=== PATIENT | female | born 1950 | race Caucasian/White ===

== ENCOUNTER 2022-04-24 13:37 | Outpatient (CLI) | payer MEDICARE, SELFPAY ==
--- NOTE | 2022-04-24 | CRLHL7_ITS ---
For Patients: As a result of the Century Cures Act, medical imaging exams and procedure reports are released immediately into your electronic medical record. You may view this report before your referring provider. If you have questions, please contact your health care provider. DXA BONE MINERAL DENSITY STUDY Current height (in): 63. Weight (lb): 170. Menopause age: 51. Ethnicity: White. 1. Have you had a previous hip or vertebral fracture? No. 2. Have you had any fractures during your adult life which did not result from significant trauma (e.g., auto accident)? No. 3. Did either of your parents have a hip fracture? No. 4. Do you smoke? No. 5. Have you ever taken Glucocorticoids? No. 6. Do you have rheumatoid arthritis? No. 7. Do you have secondary osteoporosis? No. 8. Do you drink 3 or more alcoholic drinks per day? No. 9. Are you being treated for osteoporosis? No. 10. Have you ever taken any of the following medications: Actonel, Evista, Fosamax, Miacalcin, Reclast, Boniva, Forteo, HRT (i.e. estrogen/hormone therapy), Protelos, Prolia, Vitamin D, Calcium, other ??? please specify. ANSWER: Yes, vitamin D. 11. Do you have any of the following medical conditions: Anorexia or bulimia, asthma or emphysema, end stage renal disease, hyperparathyroidism, any seizure disorders, cancer, inflammatory bowel diseases, hysterectomy, other ??? please specify. ANSWER: Yes, cancer. 12. What was your maximum height (inches)? 64. 13. Do you perform weight bearing exercise regularly? No. 14. Do you regularly consume dairy products? No. 15. Do you drink caffeinated beverages? Yes. 16. At what age did your period start? 13. 17. Are you premenopausal? No. 18. How many full term pregnancies have you had? 3. 19. Have you ever missed your period for more than 6 months in a row (not including or menopause)? No. TECHNIQUE: Bone mineral density study was performed using the [employer]. FINDINGS: The results of the study expressed as bone mineral density (BMD) are as follows: Lumbar spine L1 to L4: BMD: 0.816 g/cm2. T-score: -2.1. Z-score: 0.1 Neck Left: BMD: 0.535 g/cm2. T-score: -2.8. Z-score: -0.9 Right: BMD: 0.493 g/cm2. T-score: -3.2. Z-score: -1.3 Total Left: BMD: 0.698 g/cm2. T-score: -2.0. Z-score: -0.4 Right: BMD: 0.633 g/cm2. T-score: -2.5. Z-score: -0.9 IMPRESSION: Osteoporosis. *Comparison exams done prior to 01/2020 were performed on different unit, [facility]. COMPARISON: Compared with scan of 01/29/2018, the bone mineral density has decreased by 11.4 percent at the spine and increased by 0.6 percent at the hip. Compared with scan of 03/02/2012, the bone mineral density has decreased by 5.8 percent at the spine and decreased by 8.7 percent at the hip. Marie Alatorre M.D. Diagnostic/Breast Radiologist [email or web address] LUANN/nuria quiñones/Dictated by: Marie Alatorre MD @ 04/25/2022 4:49:00 PM (Electronically Signed)
--- NOTE | 2022-04-24 14:40 | CRLHL7_ITS ---
For Patients: As a result of the Century Cures Act, medical imaging exams and procedure reports are released immediately into your electronic medical record. You may view this report before your referring provider. If you have questions, please contact your health care provider. BILATERAL SCREENING MAMMOGRAM WITH COMPUTER-AIDED DETECTION AND TOMOSYNTHESIS TECHNIQUE: CC and MLO views were obtained. These mammographic images have been obtained using full-field digital technique. These mammographic images were interpreted with the benefit of computer-aided detection. Breast Tomosynthesis was used in this interpretation. COMPARISON FILM: 06/10/19, 01/20/18, 05/27/16. FINDINGS: There are scattered areas of fibroglandular density IMPRESSION: There is no radiographic evidence for malignancy. ASSESSMENT: BI-RADS Category 1: Negative RECOMMENDATION: Routine screening mammogram in 1 year. A lay language report of this examination will be provided to the patient. Joey Rodriguez M.D. Diagnostic/Musculoskeletal Radiologist [email or web address] CAROLANN/Dictated by: Joey Rodriguez MD @ 04/26/2022 7:48:00 AM (Electronically Signed)
== END 2022-04-24 13:38 | disposition home or self-care (01) ==
PROVIDERS: PCP Internal Medicine; Visit Provider Internal Medicine
DX: Z12.31 Encounter for screening mammogram for malignant neoplasm of breast (principal); M81.0 Age-related osteoporosis without current pathological fracture
CPT/HCPCS: 77063; 77067; 77080

== ENCOUNTER 2022-06-08 17:47 | Emergency (ER) | payer MEDICARE, BC, SELFPAY ==
[2022-06-08 18:42] VITALS: BP 121/71; PULSE 68; RESP 20; TEMP 36.5; O2SAT 99; BMI 29.2
--- NOTE | 2022-06-08 18:46 | CRLHL7_ITS ---
For Patients: As a result of the Cures Act, medical imaging exams and procedure reports are released immediately into your electronic medical record. You may view this report before your referring provider. If you have questions, please contact your health care provider. INDICATION: Status post fall. 72-year-old female. TECHNIQUE: Wrist radiograph 3 views COMPARISON: None FINDINGS: There is an impacted distal right radius fracture with angulation and minimal displacement. No definite intra-articular extension of fracture line. Displaced ulnar styloid process fracture. Carpal bones are intact. No additional fracture. IMPRESSION: 1. Impacted distal right radius fracture. 2. Ulnar styloid process fracture. Dictated by Cirilo Avina MD @ 06/08/2022 7:41:07 PM Dictated by: Cirilo Avina MD @ 06/08/2022 19:41:15 (Electronically Signed)
--- NOTE | 2022-06-08 20:11 | ED_ITS ---
HPI - General Adult General Chief complaint: Extremity Pain/Injury, Upper Stated complaint: Wrist Injury Time Seen by Provider: 06/08/22 19:58 Source: patient Mode of arrival: ambulatory Limitations: no limitations History of Present Illness HPI narrative: Patient is a jennifer 71-year-old female who was out for a walk today when she tripped over a tree root and fell forward on outstretched hands. [place] immediate pain of the right wrist. Denies any other injury. Did not hit her head or lose consciousness. Is not on any blood thinners. Related Data Home Medications Medication Instructions Recorded Confirmed No Known Home Medications 06/08/22 06/08/22 Allergies Allergy/AdvReac Type Severity Reaction Status Date / Time penicillin V Allergy Mild Unknown Verified 05/03/22 08:43 Review of Systems Status of ROS: Reports: 10 or more systems reviewed and unremarkable except as noted in History and below [facility] Medical History Atrophic vulvovaginitis (2015) History of dysthymia (02/20/12) Hyperlipidemia Surgical History History of basal cell carcinoma (BCC) of skin (2019) History of dilation and curettage (2006) History of malignant neoplasm of breast (2003) History of tonsillectomy (~1960) Exam Narrative: Exam Narrative: Well-nourished well-developed patient in no acute distress. Alert and oriented. Answers questions appropriately. Mood and affect are appropriate. Thoughts are goal oriented and rational. No tangential or magical thinking noted. Patient speaks in full sentences without needing to catch her breath. HEENT: Normocephalic atraumatic. Pupils are equally round reactive to light. Extraocular muscles are intact. Conjunctivae are moist without any icterus noted. Extremities: Right upper arm is swollen at the lateral wrist and tender in that area. She has a good radial pulse. Hand is vascularly neurologically intact. The remainder of the arm peers normal. Skin: Well perfused without any obvious rashes. Const: Vital Signs, click to edit/add: Vital Signs - 24 hr 06/08/22 18:42 Temperature 97.7 F Pulse Rate [Left P ulse Oximeter] 68 Respiratory Rate 20 Blood Pressure [Ri ght Upper Arm] 121/71 Pulse Oximetry 99 Oxygen Delivery Me thod Room Air Course Course Hospital Course: Wrist x-rays shows an impacted distal radial fracture and an ulnar styloid fracture. There is some angulation but no displacement noted. Wrist was splinted in the ED today. Vital Signs Vital signs: Initial Vital Signs Temperature 97.7 F 06/08/22 18:42 Temperature Source Temporal Artery Scan 06/08/22 18:42 Pulse Rate 68 06/08/22 18:42 Respiratory Rate 20 06/08/22 18:42 Blood Pressure 121/71 06/08/22 18:42 Blood Pressure Mean 87 06/08/22 18:42 Blood Pressure Position Sitting 06/08/22 18:42 Pulse Oximetry 99 06/08/22 18:42 Oxygen Delivery Method 06/08/22 18:42 Vital Signs Temperature 97.7 F 06/08/22 18:42 Pulse Rate 68 06/08/22 18:42 Respiratory Rate 20 06/08/22 18:42 Blood Pressure 121/71 06/08/22 18:42 Pulse Oximetry 99 06/08/22 18:42 Oxygen Delivery Method 06/08/22 18:42 Temperature 97.7 F 06/08/22 18:42 Pulse Rate 68 06/08/22 18:42 Respiratory Rate 20 06/08/22 18:42 Blood Pressure 121/71 06/08/22 18:42 Pulse Oximetry 99 06/08/22 18:42 Oxygen Delivery Method 06/08/22 18:42 Medical Decision Making MDM Narrative Medical decision making narrative: Distal radial fracture and ulnar styloid fracture. Patient splinted in the ED. Will follow-up with orthopedics next week. We discussed symptomatic treatment. Imaging Data Wrist x-ray: Attestation: I have reviewed the pertinent imaging results. Radiologist's impression: Wrist radiograph 3 views COMPARISON: None FINDINGS: There is an impacted distal right radius fracture with angulation and minimal displacement. No definite intra-articular extension of fracture line. Displaced ulnar styloid process fracture. Carpal bones are intact. No additional fracture. IMPRESSION: 1. Impacted distal right radius fracture. 2. Ulnar styloid process fracture. Discharge Plan Discharge Clinical Impression: Fracture of ulnar styloid, Distal radial fracture Patient Disposition: Home, Self-Care Condition: Stable Additional Instructions: Wear splint at all times. Wear sling as needed for comfort. Okay to use ibuprofen or Tylenol for pain. Follow up with Orthopedics this coming week. Prescriptions: No Action No Known Home Medications Follow Up/Referrals: Ale Cardona MD [Primary Care Provider] - Stand Alone Forms: [facility] Info Instructions
== END 2022-06-08 22:51 | disposition home or self-care (01) ==
PROVIDERS: Emergency Provider Family Medicine; PCP Internal Medicine
DX: S52.614A Nondisplaced fracture of right ulna styloid process, initial encounter for closed fracture (principal); S52.91XA Unspecified fracture of right forearm, initial encounter for closed fracture; W01.0XXA Fall on same level from slipping, tripping and stumbling without subsequent striking against object, initial encounter
CPT/HCPCS: 29125; 73100; 99283; 99284

== ENCOUNTER 2022-06-19 07:57 | Day surgery (SDC) | payer MEDICARE, BC, SELFPAY ==
[2022-06-19] VITALS (9 sets, daily range): BP systolic 82–122; BP diastolic 49–83; PULSE 54–64; RESP 16; TEMP 36.3–36.7; O2SAT 93–100; BMI 31.5
[2022-06-19] MEDS: SODIUM CHLORIDE 0.9 % (FLUSH) 10 ML SYRINGE IVF (08:15)
[2022-06-19] MEDS: LACTATED RINGERS 1000 ML 1,000 ML 100 ML IV (08:15)
--- NOTE | 2022-06-19 08:40 | CRLHL7_ITS ---
For Patients: As a result of the Cures Act, medical imaging exams and procedure reports are released immediately into your electronic medical record. You may view this report before your referring provider. If you have questions, please contact your health care provider. Indication: RIGHT DISTAL RADIUS ORIF Technique: Two fluoroscopic images of the right wrist. Fluoroscopic time 12.1 seconds. IMPRESSION: Fluoroscopic guidance for open reduction internal fixation of distal radial fracture. Dictated by Benitez Meza MD @ 06/19/2022 11:03:29 AM (Electronically Signed)
--- NOTE | 2022-06-19 08:42 | SUR.PREOP ---
TIME?OUT:?0845 PT/RN/MDA?VERIFICATION?OF?SURGICAL?SITE,?PROCEDURE,?AND?CONSENT OBTAINED?PRIOR?TO?INVASIVE?PROCEDURE.
[2022-06-19] MEDS: MIDAZOLAM HCL 1 MG/ML inj IVP (08:47)
[2022-06-19] MEDS: fentaNYL 100 MCG/2 ML inj IVP (08:47)
--- NOTE | 2022-06-19 09:03 | W.PM.NB ---
Nerve Block Nerve Block Time Seen by Provider: 08:45 Date Seen: 06/19/22 Type of block requested by surgeon for post-operative analgesia: axillary Side: right Time out performed: Yes Verification of patient name: Yes Verification of date of : Yes Site marking: site marked Name of person performing procedure: britt Continuous monitoring Was continuous monitoring of O2 sat, B/P, threat monitoring analyst, recorded every 15 minutes?: Yes Procedure Checklist: sterile prep, needles and gloves Ultrasound guided. Images saved: Yes Medications given in 5ml increments after negative aspiration: Ropivicaine %: 0.5 mL: 20 Needle gauge: 22 Decadron (mg): 10 Precedex (mcg): 25 Patient tolerated procedure well: Yes Block Charges Block Charge (with Pro Fee): Axillary Nerve Use of Ultrasound Machine for Block: Yes- US Guidance/pain block
[2022-06-19] MEDS: CEFAZOLIN 2 GM in 0.9 % SODIUM CHLORIDE Mini-bag 100 ML IVPB (09:12)
--- NOTE | 2022-06-19 10:10 | P.ORPRC_ITS ---
Procedure Note Date of procedure: 06/19/22 Procedure: PREOPERATIVE DIAGNOSES: 1. Right distal radius fracture extra-articular, dorsally angulated and displaced - unstable POSTOPERATIVE DIAGNOSES: 1. Right distal radius fracture extra-articular, dorsally angulated and displaced - unstable NAME OF OPERATION: 1. Right distal radius open reduction with internal fixation of extra-articular 2 part 2. 60925 - intraoperative fluoroscopy up to 1 hour. SURGEON: Chad Rose MD DOMESTIC TRAVEL CONSULTANT: Cirilo Hollis - Of note, an housekeeper and laundry assistant was critical for this case to aide in patient positioning, limb manipulation, tissue retraction, closure, and splinting. ANESTHESIA: Supraclavicular block IMPLANTS: Synthes dual column volar locking plate with 2.4 mm locking pegs distally and 2.4 and 2.7 mm locking and nonlocking screws proximally, respectively. TOURNIQUET: 22 minutes at 225 torr. INDICATIONS: The patient is a pleasant, 72-year-old female who sustained a right wrist injury after a fall. They had difficulty with use of the extremity and deformity. Workup included xrays which revealed an unstable fracture. Given these findings, surgery was recommended to stablize the fracture. FINDINGS: Closed, dorsally angulated and displaced distal radius fracture with dorsal cortical buckling/comminution. Extra-articular fracture. PROCEDURE: Following a thorough discussion of risks, benefits, and alternatives, consent was obtained and the operative extremity was marked. The patient was brought to the operating room and placed supine on the operating table. Induction of anesthesia was achieved. Appropriate time out was performed identifying proper patient, site and procedure. 1 gram of iv Ancef was administered within 1 hour of incision preoperatively. The right upper extremity was prepped and draped in the appropriate sterile fashion using ChloraPrep prep. The limb was exsanguinated and the tourniquet inflated. A longitudinal incision was made overlying the FCR tendon. Sharp incision through skin and subcutaneous tissue allowed identification of the FCR tendon. The superficial sheath was sharply divided, the tendon retracted ulnarly, and the deep fascial sheath also released. The FPL was retracted ulnarly and the pronator quadratus was sharply released from the radial border of the radius and subperiosteally elevated. The fracture was encountered and cleared of interposed periosteum / fracture hematoma. A reduction was performed and the appropriate plate selected. Temporary stabilization allowed C-arm fluoroscopy to confirm proper fracture reduction and plate positioning. The oblong hole was filled with a nonlocking screw followed by multiple distal locking pegs being careful to keep these in subchondral bone and extraarticular. Finally, the remaining proximal shaft screws were drilled and placed. Fluoroscopic imaging confirmed the improved position and showed the fracture to be stable. At this stage, the wound was thoroughly irrigated with normal saline. Closure performed with 0 Vicryl for the pronator quadratus, followed by deflation of the tourniquet. All major bleeding points were cauterized. Closure was then completed with 3-0 Vicryl for the subcutaneous, and 4-0 statafix for subcuticular closure. Dressings were applied along with a volar/dorsal splint. The patient was awoken from anesthesia and transferred to PACU in stable condition. PLAN: 1. Elevate operative extremity. 2. Ice, acetominphen or ibuprofen PRN. 3. Percocet for pain as needed. 4. Follow up with PA visit in 10-16 days for wound check and splint removal.
--- NOTE | 2022-06-19 10:20 | W.ANESCHARGE ---
Anesthesia Charges Start Date/Time Anesthesia Start Date: 06/19/22 Anesthesia Start Time: 09:03 Stop Date/Time Anesthesia Stop Date: 06/19/22 Anesthesia Stop Time: 10:15 Summary Emergency: No Extremes of Age: Over 70-CPT 64391
--- NOTE | 2022-06-19 10:25 | W.ANESCHARGE ---
Anesthesia Charges Start Date/Time Anesthesia Start Date: 06/19/22 Anesthesia Start Time: 09:03 Stop Date/Time Anesthesia Stop Date: 06/19/22 Anesthesia Stop Time: 10:15 Summary Emergency: No Extremes of Age: Over 70-CPT [id number]
== END 2022-06-19 11:35 | disposition home or self-care (01) ==
PROVIDERS: PCP Internal Medicine; Visit Provider Orthopaedic Surgery Sports Medicine
PROC: (CPT 25575; principal; 2022-06-19 09:15)
DX: S52.551A Other extraarticular fracture of lower end of right radius, initial encounter for closed fracture (principal)
CPT/HCPCS: 25607; 01830; 64417; 73100; 76000; 76942; 99100; A4580; C1713; J0690; J1100; J2250; J2405; J2704; J2795; J3010; J7120

== ENCOUNTER 2022-08-07 08:45 | Outpatient (RCR) | payer MEDICARE, BC, SELFPAY ==
--- NOTE | 2022-07-17 09:02 | OT.OPOE ---
OT Outpatient Ortho Eval OT Outpatient Ortho Eval Start: 07/16/22 10:46 Freq: Status: Active Protocol: Document 07/17/22 07:11 AMB (Rec: 07/17/22 08:59 AMB [id number]) E-signed By Tamia Ludwig, OTR/L, CLT, MACHINIST JOB SETTER OT OP Ortho Eval Details Type Type Eval Complexity Low Insurance Information Insurance Information [employer] Outpatient History/Precautions Current Condition/Medical Diagnosis Referring Provider QUINTIN Carter Treatment Diagnosis KAILA cervantes S/P ORIF Date of Onset DOS: 05/31/22 Other Conditions (PMH copied from ortho chart): Active Problems (Reviewed @ 10:23 by Meri Black LPN) Status post open reduction and internal fixation (ORIF) of fracture (Acute) Z98.890, Z87. 81 3 weeks postoperative right distal radius ORIF extra- articular 2 part (date of surgery 06/19/2022) - stable Atrophic vulvovaginitis ( Chronic 2015) N95.2 Premarin external cream started 05/10 Hyperlipidemia (Chronic) E78.5 Noted 2011 Osteopenia (Acute) M85.80 last DEXA 03/05, bone density worsened by DEXA 02/09, worsened again by DEXA 04/15, alendronate recommended Medical History (Reviewed @ 10:23 by Meri Black LPN) History of dysthymia (02/20/12 ) Surgical History (Reviewed @ 10:23 by Meri Black LPN) History of basal cell carcinoma (BCC) of skin (2019) History of dilation and curettage (2006) History of malignant neoplasm of breast (2003) History of open reduction and internal fixation (ORIF) procedure History of tonsillectomy (~ 1960) Medical/Functional History Medical History Reviewed Yes Social History Employment Status Retired Oriented Mental Status No Concerns Ortho Subjective Subjective Subjective Pt states she was on a walk near her home and tripped over a tree root causing her to fall on her right (dominant) hand sustaining the wrist fracture. Pt feels she is doing ok but gets so fatigued and her splint has not been comfortable. Pt is entertaining for Thanksgiving and is really trying to be mindful of not lifting or doing too much with her right hand. Pt states her pain is mild, denies any paresthesia. Pt denies any shoulder or elbow pain or limitations. Pain Assessment Pain Present Pain Present Pain Reported Location Right Wrist Description Tightness,Dull, Achy,Throbbing Intensity 2 Goniometric Comments Goniometric Comments Goniometric Comments 07/17/22 AROM of BUE is WNL throughout with the exception of the RUE wrist and forearm. AROM of the RUE wrist flexion is 45, ext is 40, UD is 15, RD is 15, pronation is 45, supination is 75, fist and opposition are full. OT Objective Data Hand Hand Dominance Right OT Problems Problems Problems Decreased Strength,Decreased Range of Motion,Decreased Dexterity,Decreased Fine Motor ,Decreased Coordination, Lifting,Gripping,Pinching Other Problems Writing,Opening Containers, Dressing,Computer,Fasteners Patient Potential Good Assessment Assessment Assessment Pt presents with pain, swelling, limited ROM and weakness of RUE secondary to DR fx with ORIF. These impairments limit pt's ability to complete ADLs and IADLs that require gripping, pinching, lifting and carrying with the RUE including but not limited to dressing, cooking, cleaning, etc. Pt will benefit from skilled OT intervention to address deficits in order to restore full, pain-free use of her RUE . Occupational Therapy Treatment Plan - OP Potential Rehabilitation Potential Good Set Goals Goals Set with Patient Yes Goals Goals 1. Pt will be independent and compliant with HEP in order to resume full, pain-free use of the involved UE. 3 weeks 2. Pt will demonstrate full, pain-free AROM of the involved UE in order to improve ability to grasp and hold. 6 weeks 3. Pt will demonstrate pain- free leacher and pinch strength comparable to the uninvolved side in order to improve functional grasp, hold, reach, and lifting ability needed to complete self-care, leisure tasks, and work activities. 8 weeks. Progress set Treatment Plan Treatment Plan Evaluation,Edema Control,Joint Mobilization,Manual Therapy, Splinting,Wound Care/Scar Management,Therapeutic Exercise,Therapeutic Activities,Self-Care/Home Management,Education Expected Frequency 1-2x Week Expected Duration 4-6 Weeks Expected Duration Comments Pt will be leaving for [place] in a month. Certification Certification I Certify That: Therapy Services Provided, Therapy Plan Established, Therapy Plan Reviewed Recertification Information Recertification Information Initial Certification Date 07/17/22 Recertification Start Date 07/17/22 Recertification Due Date 10/15/22 Reasons to Continue Skilled Therapy Initiating OT for rehabilitation and episcopal of ROM and strength of RUE secondary to DR cervantes with ORIF Rehabilitation Potential good Continued Plan of Care and Interventions See above Provider Signature Shows Agreement With POC & Medical Necessity Physician Comment/Change Comment or Changes Physician NPI Number #
== END 2022-08-07 12:45 | disposition home or self-care (01) ==
PROVIDERS: PCP Internal Medicine; Visit Provider Physician Assistant Surgical
DX: Z98.890 Other specified postprocedural states (principal); Z51.89 Encounter for other specified aftercare
CPT/HCPCS: 97110; 97140; 97165; X5282

== ENCOUNTER 2023-05-08 15:40 | Outpatient (CLI) | payer MEDICARE, BC, SELFPAY | END 2023-05-08 15:41 | disposition home or self-care (01) | PROVIDERS: PCP Internal Medicine; Visit Provider Internal Medicine | DX: Z00.00 Encounter for general adult medical examination without abnormal findings (principal); R53.83 Other fatigue; E78.5 Hyperlipidemia, unspecified; E66.9 Obesity, unspecified | CPT/HCPCS: 80053; 80061; 82550; 82607; 83735; 84443 ==

== ENCOUNTER 2024-05-25 09:30 | Outpatient (CLI) | payer MEDICARE, BC, SELFPAY | END 2024-05-25 09:31 | disposition home or self-care (01) | LOC: NFLDREF 05-26 13:24 | PROVIDERS: PCP Internal Medicine; Referring Provider Internal Medicine; Visit Provider Internal Medicine | DX: E78.5 Hyperlipidemia, unspecified (principal); M85.80 Other specified disorders of bone density and structure, unspecified site; E55.9 Vitamin D deficiency, unspecified | CPT/HCPCS: 80061; 82306 ==

== ENCOUNTER 2024-12-21 10:01 | Outpatient (CLI) | payer MEDICARE, BC, SELFPAY ==
--- NOTE | 2024-12-21 10:15 | CRLHL7_ITS ---
For Patients: As a result of the Century Cures Act, medical imaging exams and procedure reports are released immediately into your electronic medical record. You may view this report before your referring provider. If you have questions, please contact your health care provider. INDICATION: BILATERAL SCREENING MAMMOGRAM, ASYMPTOMATIC 74 Y/O FEMALE COMPARISON: 04/24/22, 06/10/19, 01/20/18 TECHNIQUE: CC and MLO views were obtained. These mammographic images have been obtained using full-field digital technique. These mammographic images were interpreted with the benefit of computer aided detection and tomosynthesis. BREAST COMPOSITION: The breasts are almost entirely fatty. FINDINGS: No suspicious findings. ASSESSMENT: BI-RADS 2 Benign RECOMMENDATION: Annual screening mammogram. A lay language report of this examination will be provided to the patient. Dictated by: Benitez Meza MD @ 12/30/2024 10:26:11 (Electronically Signed)
== END 2024-12-21 10:02 | disposition home or self-care (01) ==
LOC: MAMMO 10:02
PROVIDERS: PCP Internal Medicine; Visit Provider Internal Medicine
DX: Z12.31 Encounter for screening mammogram for malignant neoplasm of breast (principal)
CPT/HCPCS: 77063; 77067

== ENCOUNTER 2025-06-07 10:05 | Outpatient (CLI) | payer MEDICARE, BC, SELFPAY | END 2025-06-07 10:06 | disposition home or self-care (01) | LOC: NFLDREF 06-23 23:15 | PROVIDERS: PCP Internal Medicine; Referring Provider Internal Medicine; Visit Provider Internal Medicine | DX: M85.80 Other specified disorders of bone density and structure, unspecified site (principal) | CPT/HCPCS: 82306 ==

== ENCOUNTER 2025-07-19 14:09 | Outpatient (CLI) | payer MEDICARE, BC, SELFPAY ==
--- NOTE | 2025-07-19 14:30 | CRLHL7_ITS ---
For Patients: As a result of the 21st Century Cures Act, medical imaging exams and procedure reports are released immediately into your electronic medical record. You may view this report before your referring provider. If you have questions, please contact your health care provider. Indication: Sciatica. Technique: Multiplanar multisequence noncontrast MR images of the lumbar spine. Comparison: None. Findings: Moderate rightward lumbar curvature. Mildly exaggerated lumbar lordosis. Vertebral body heights are maintained. No acute fracture. No T1 hypointense lesion. Conus terminates at L1-2. T12-L1: Mild disc degeneration. No spinal canal or neural foraminal narrowing. L1-2: Trace retrolisthesis. Moderately advanced disc height loss. Posterior disc bulge eccentric to the left. Mild facet arthropathy. Mild spinal canal narrowing. Moderate left lateral recess narrowing. No neural foraminal narrowing. L2-3: Mild retrolisthesis. Moderate disc height loss. Minimal marrow edema. Posterior disc bulge. Left far lateral disc extrusion or sequestration measuring 6 mm in short axis abuts the exiting left L2 nerve root. Mild facet arthropathy. Mild spinal canal narrowing. Nduw-jm-vofkjwqo left lateral recess narrowing. Cyxl-cz-zsxhgdvg left and mild right neural foraminal narrowing. L3-4: Mild grade 1 anterolisthesis. Severe left eccentric disc height loss. Type 2 degenerative signal changes. Left eccentric disc bulging and endplate spondylitic ridging. Moderate left and qjsy-lv-rhnazypx right facet arthropathy. Thickening ligamentum flavum. Mild spinal canal narrowing. Moderate left lateral recess narrowing. Severe left and mild right neural foraminal narrowing. L4-5: Moderate disc degeneration. Shallow disc bulge. Lgoz-ng-wqejlghl facet arthropathy. Minimal spinal canal narrowing. Moderate left and sqjr-qq-avxgnypv right neural foraminal narrowing. Minimal marrow edema left posterior elements is compatible with a stress response L5-S1: Moderate disc degeneration. Right eccentric disc height loss. Minimal endplate edema. Posterior disc bulging and endplate spondylitic ridging. Cblu-xf-vfznhfwc facet arthropathy. No spinal canal narrowing. Moderate right and mild left neural foraminal narrowing. Sacroiliac joint degenerative changes. Incompletely visualized nodularity of the left adrenal gland. Impression: 1. Multilevel lumbar spondylosis without spinal canal stenosis. 2. At L2-3, left far lateral disc extrusion or sequestration abuts exiting left L2 nerve root. Bprj-en-diapncjw narrowing of the left lateral recess and left neural foramen. 3. At L3-4, moderate left lateral recess narrowing. Severe left neural foraminal stenosis. 4. At L4-5, moderate left and xtvk-kw-wbffwmyn right neural foraminal narrowing. 5. At L5-S1, moderate right neural foraminal narrowing Dictated by Chau Liriano MD @ 07/19/2025 6:01:56 PM (Electronically Signed)
== END 2025-07-19 14:10 | disposition home or self-care (01) ==
LOC: MRI 14:11
PROVIDERS: PCP Internal Medicine; Visit Provider Nurse Anesthetist, Certified Registered
DX: M54.32 Sciatica, left side (principal); M47.816 Spondylosis without myelopathy or radiculopathy, lumbar region; M51.26 Other intervertebral disc displacement, lumbar region; M51.369 Other intervertebral disc degeneration, lumbar region without mention of lumbar back pain or lower extremity pain; M51.379 Other intervertebral disc degeneration, lumbosacral region without mention of lumbar back pain or lower extremity pain; M99.71 Connective tissue and disc stenosis of intervertebral foramina of cervical region; M99.72 Connective tissue and disc stenosis of intervertebral foramina of thoracic region; M48.061 Spinal stenosis, lumbar region without neurogenic claudication
CPT/HCPCS: 72148